=== PATIENT | male | born 1960 | race Caucasian/White ===

== ENCOUNTER → 2020-02-22 15:47 | Outpatient (BNVA) | payer MEDICARE, MEDICAID, SELFPAY | PROVIDERS: Family Provider Nurse Practitioner Family; PCP Nurse Practitioner Family; Visit Provider Nurse Practitioner | DX: M54.2 Cervicalgia (principal); M25.511 Pain in right shoulder; M54.9 Dorsalgia, unspecified; Z13.6 Encounter for screening for cardiovascular disorders | CPT/HCPCS: 80053; 80061; 81000 ==

== ENCOUNTER → 2020-03-02 09:17 | Outpatient (BNVA) | payer MEDICARE, MEDICAID, SELFPAY | PROVIDERS: Family Provider Nurse Practitioner Family; PCP Nurse Practitioner Family; Visit Provider Nurse Practitioner | DX: M54.2 Cervicalgia (principal); M25.511 Pain in right shoulder; M54.9 Dorsalgia, unspecified | CPT/HCPCS: 72040; 72072; 72100; 73030 ==

== ENCOUNTER → 2025-05-07 09:00 | Outpatient (BNVA) | payer MEDICARE, SELFPAY | PROVIDERS: Family Provider Nurse Practitioner Family; PCP Nurse Practitioner Family; Visit Provider Clinical Nurse Specialist Adult Health | DX: L40.9 Psoriasis, unspecified (principal); M19.90 Unspecified osteoarthritis, unspecified site; E78.2 Mixed hyperlipidemia; N20.0 Calculus of kidney | CPT/HCPCS: 80053; 80061; 81000; 82306; 85025; 86038; 86140; 86431; 87086 ==

== ENCOUNTER → 2025-05-13 14:39 | Outpatient (BNVA) | payer MEDICARE, SELFPAY | PROVIDERS: Family Provider Nurse Practitioner Family; PCP Nurse Practitioner Family; Visit Provider Orthopaedic Surgery | DX: M48.061 Spinal stenosis, lumbar region without neurogenic claudication (principal); M51.360 Other intervertebral disc degeneration, lumbar region with discogenic back pain only | CPT/HCPCS: 72110; 99203 ==

== ENCOUNTER 2025-05-27 12:58 | Outpatient (CLI) | payer MEDICARE, SELFPAY ==
--- NOTE | 2025-05-27 13:00 | MR_ITS ---
WS: [id number] MRI LUMBAR SPINE NONCONTRAST HISTORY: low back pain COMPARISON: MRI lumbar spine 02/02/2015, radiographs 05/13/2025 TECHNIQUE: Sagittal and axial multisequence imaging is submitted. Same numbering pattern will be used as on the prior MRI from 02/02/2015. There are 5 nonrib-bearing lumbar vertebral bodies. There are only 11 type thoracic vertebral bodies. This numbering pattern would be important to review if surgery is contemplated in this patient. At the T4 level there is encroachment upon the dorsal cord by osteophyte. Similar findings noted posterior to the T9 vertebral body encroaching upon the dorsal cord, greatest to the LEFT with deformity. Slight retrolisthesis of L3 and L4. No fractures or marrow edema. Disc spaces and vertebral body heights are well-preserved. Conus terminates normally at L1-2 disc level. L1-L2: Mild facet and ligamentum flavum hypertrophy. Mild foraminal stenosis. L2-L3: Mild facet arthritis. Moderate RIGHT and mild LEFT foraminal stenosis. Mild progression of foraminal stenosis since the prior study. L3-L4: Diffuse disc bulging with osteophytic ridging. LEFT foraminal disc protrusion appears larger in size than on the prior study. Marked ligamentum flavum and facet arthritis. There is disc contact on the traversing L4 nerve roots. Additional disc contact on the exiting nerve roots bilaterally but g reatest on the LEFT. Moderate central and subarticular recess stenosis. Severe bilateral foraminal stenosis but greatest on the LEFT. L4-L5: Diffuse annular disc bulging with severe ligamentum flavum and facet arthritis. Osteophytic ridging contributing to the stenosis. Severe central, bilateral subarticular recess and bilateral foraminal stenosis. Disc osteophyte contact on the L4 and L5 nerve roots. L5-S1: Diffuse disc bulging with a central disc protrusion. Moderate ligamentum flavum and facet arthritis. Moderate central and bilateral subarticular recess stenosis. Severe bilateral foraminal stenosis. Disc osteophyte contact on the L5 and S1 nerve roots. Similar to the prior study. RIGHT renal cyst. Mild atherosclerotic disease within the abdominal aorta. No aneurysm. MR/MR lumbar spine wo con* [id number] IMPRESSION: 1. Interval progression of central and foraminal stenoses and degenerative fac et disease since 02/02/2015. 2. LEFT foraminal disc protrusion at L3-4 has increased in size since the prio r study. Moderate central, subarticular recess and severe bilateral foraminal s tenosis, LEFT greater than RIGHT. 3. Severe central, bilateral subarticular recess and foraminal stenosis at L4- 5. 4. Moderate central and bilateral subarticular recess stenosis. Severe foramin al stenosis similar to the prior study. 5. Moderate RIGHT and mild LEFT foraminal stenosis at L2-3. Mild progression s yg the prior study. 6. Additional osteophyte or facet encroachment upon the dorsal thoracic cord a t T4 and T9.
== END 2025-05-27 12:59 | disposition home or self-care (01) ==
LOC: RAD 13:00
PROVIDERS: PCP Nurse Practitioner Family; Visit Provider Orthopaedic Surgery
DX: M48.061 Spinal stenosis, lumbar region without neurogenic claudication (principal); M51.360 Other intervertebral disc degeneration, lumbar region with discogenic back pain only
CPT/HCPCS: 72148

== ENCOUNTER → 2025-06-08 14:16 | Outpatient (BNVA) | payer MEDICARE, SELFPAY | PROVIDERS: PCP Nurse Practitioner Family; Visit Provider Orthopaedic Surgery | DX: M48.061 Spinal stenosis, lumbar region without neurogenic claudication (principal); Z09 Encounter for follow-up examination after completed treatment for conditions other than malignant neoplasm | CPT/HCPCS: 99213 ==